=== PATIENT | male | born 1950 | race Caucasian/White ===

== ENCOUNTER 2018-02-05 09:23 | Emergency (ER) | payer MEDICARE, OTHER ==
[2018-02-05] MEDS: NITROGLYCERIN 2% 1 GM OINT PKT TD (09:33)
[2018-02-05] MEDS: ASPIRIN 81 MG TAB PO (09:34)
[2018-02-05] MEDS: NITROGLYCERIN (SL) 0.4 MG TAB SL (09:34)
[2018-02-05 09:42] LABS: AADO2 Arterial 257.5 mmHg (7.0-24.0); ADD MAN DIFF? NO; Allen Test ACCEPTAB; Arterial Base Excess -2.3 mmol/L (-3.0-3); Arterial Blood Gas Oxygen Sat 99.5 mmHG (95.0-98.0); Arterial COHb 0.8 % (0.0-3.0); Arterial Fraction of Oxyhgb 98.3 % (93.0-99.0); Arterial HCO3 23.7 mmol/L (22.0-26.0); Arterial MetHb 0.4 % (0.0-1.5); Arterial pCO2 45.4 mmhg (35-45); Blood Gas PS 10; MODE MASK - BIPAP; Site Right Radial
[2018-02-05 09:49] LABS: WHITE BLOOD COUNT 6.7 10^3/ul (4.8-10.8)
[2018-02-05 09:49] LABS: BASOPHIL # 0.1 10^3/ul (0.0-0.1); BASOPHILS % 0.8 % (0.0-2.0); EOSINOPHILS # 0.1 10^3/ul (0.0-0.5); EOSINOPHILS % 1.5 % (0.0-7.0); HEMATOCRIT 40.4 % (42.0-52.0); HEMOGLOBIN 13.4 g/dl (14.0-18.0); LYMPHOCYTES # 1.8 10^3/ul (0.8-2.9); LYMPHOCYTES % 27.5 % (15.0-51.0); MEAN CORPUSCULAR HEMOGLOBIN 30.6 pg (29.0-33.0); MEAN CORPUSCULAR HGB CONC 33.2 g/dl (32.0-37.0); MEAN CORPUSCULAR VOLUME 92.2 fl (82.0-101.0); MEAN PLATELET VOLUME 10.7 fl (7.4-10.4); MONOCYTE # 0.4 10^3/ul (0.3-0.9); MONOCYTES % 5.7 % (0.0-11.0); NEUTROPHIL # 4.2 10^3/ul (1.6-7.5); NEUTROPHILS % 63.4 % (39.0-77.0); PLATELET COUNT 182 10^3/UL (140-415); RED BLOOD COUNT 4.38 10^6/ul (4.70-6.10); RED CELL DISTRIBUTION WIDTH 13.3 % (11.5-14.5)
[2018-02-05 10:11] LABS: ANION GAP 12 (5-13); BLOOD UREA NITROGEN 17 mg/dl (7-20); CALCIUM 8.7 mg/dl (8.4-10.2); CARBON DIOXIDE 26 mmol/L (21-31); CHLORIDE 105 mmol/L (97-110); CREATININE 0.91 mg/dl (0.61-1.24); Estimated GFR > 60 mL/min (>60); GLUCOSE 263 mg/dl (70-220); POTASSIUM 4.2 mmol/L (3.5-5.1); SODIUM 143 mmol/L (135-144)
[2018-02-05 10:22] LABS: TROPONIN-I 0.019 ng/ml (0.000-0.120)
[2018-02-05] MEDS ORDERED: LORAZEPAM 0.5 MG TAB PO (11:30)
[2018-02-05] MEDS ORDERED: DOCUSATE SODIUM 100 MG CAP PO (11:30)
[2018-02-05] MEDS ORDERED: NITROGLYCERIN (SL) 0.4 MG TAB SL (11:30)
[2018-02-05] MEDS ORDERED: ONDANSETRON 4 MG INJ IV ×2 (11:30)
[2018-02-05] MEDS ORDERED: morphine 2 MG INJ IV (11:30)
[2018-02-05] MEDS ORDERED: ACETAMINOPHEN 325 MG TAB PO ×2 (11:30)
[2018-02-05] MEDS ORDERED: GLUCOSE GEL 15 GRAM TUBE PO ×2 (12:00)
[2018-02-05] MEDS ORDERED: DEXTROSE 50% 50 ML SYRINGE IV ×2 (12:00)
[2018-02-05] MEDS ORDERED: INSULIN ASPART [NOVOLOG] 3 ML PEN SC ×2 (12:00)
[2018-02-05] MEDS ORDERED: GLUCAGON 1 MG INJ IM (12:00)
[2018-02-05] MEDS ORDERED: GLUCOSE GEL 15 GRAM TUBE BUCCAL (12:00)
[2018-02-05 15:14] LABS: B-TYPE NATRIURETIC PEPTIDE 1110 PG/ML (0-125)
[2018-02-05] MEDS ORDERED: FUROSEMIDE 40 MG INJ IV ×2 (18:00)
[2018-02-05] MEDS ORDERED: INSULIN GLARGINE [LANTus] (100 UNITS/ML) SYG SC (20:00)
[2018-02-05] MEDS ORDERED: FAMOTIDINE 20 MG TAB PO (21:00)
[2018-02-05] MEDS ORDERED: APIXABAN 5 MG TABLET PO (21:00)
[2018-02-05] MEDS ORDERED: ATORVASTATIN 20 MG TAB PO (21:00)
[2018-02-06] MEDS ORDERED: ACCU-CHEK XX (02:00)
[2018-02-06] MEDS ORDERED: LISINOPRIL 5 MG TAB PO (09:00)
[2018-02-06] MEDS ORDERED: ASPIRIN (EC) 81 MG TAB PO (09:00)
== END 2018-02-05 13:10 | disposition left against medical advice (07) ==
LOC: E/R 09:23
DX: J96.00 Acute respiratory failure, unspecified whether with hypoxia or hypercapnia (principal); R40.2142 Coma scale, eyes open, spontaneous, at arrival to emergency department; R40.2362 Coma scale, best motor response, obeys commands, at arrival to emergency department; R40.2252 Coma scale, best verbal response, oriented, at arrival to emergency department; J81.0 Acute pulmonary edema; Z87.891 Personal history of nicotine dependence; Z79.82 Long term (current) use of aspirin; Z79.01 Long term (current) use of anticoagulants; Z79.84 Long term (current) use of oral hypoglycemic drugs
CPT/HCPCS: 36415; 36600; 71045; 80048; 82803; 83880; 84484; 85025; 93005; 94660; 99285-25